=== PATIENT | male | born 1995 | race Caucasian/White ===

== ENCOUNTER 2019-04-27 07:58 | Day surgery (SDC) | payer BC ==
[2019-04-26 09:36] VITALS: BMI 23.6
[2019-04-27] MEDS ORDERED: Ketorolac Tromethamine 30 MG/ML VIAL ONE (08:46)
[2019-04-27 08:51] LABS: #Eosinphils 0.1 thou/uL (0.0-0.7); #Lymphocytes 1.7 thou/uL (1.20-3.40); #Monocytes 0.5 thou/uL (0.11-0.59); #Neutrophils 3.7 thou/uL (1.40-6.50); %Basophils 0.6 % (0.0-1.0); %Eosinophils 1.4 % (0.0-10.0); %Lymphocytes 27.7 % (21.0-51.0); %Neutrophils 62.2 % (42.0-75.0); Hemoglobin 16.8 g/dL (14.0-18.0); Mean Corpuscular HGB CONC 32.5 g/dL (32.0-36.0); Mean Corpuscular Hemoglobin 30.2 pg (27.0-31.0); Mean Corpuscular Volume 93.1 fL (78.0-98.0); Mean Platelet Volume 8.9 fL (7.4-10.4); Platelet Count 199 thou/uL (130-400); RBC Distribution Width 11.4 % (11.5-14.5); Red Blood Cell (RBC) Count 5.56 mill/uL (4.70-6.10)
[2019-04-27] MEDS ORDERED: Isosulfan Blue 50 MG/5 ML VIAL ONE (08:59)
[2019-04-27] MEDS ORDERED: Bacitracin Zinc Ointment 30 gm TUBE ONE (09:00)
[2019-04-27] MEDS ORDERED: Bupivacaine/Epinephrine 0.25% 30 ML VIAL ONE (09:00)
[2019-04-27 09:09] LABS: Anion Gap 12 mmol/L (10-20); BUN (Urea Nitrogen) 12 mg/dL (8.9-20.6); Calc. Creatinine Clearance 117 mL/min (70-130); Calcium 9.9 mg/dL (7.8-10.44); Carbon Dioxide 27 mmol/L (22-29); Chloride 104 mmol/L (98-107); Estimated GFR-MDRD 88; Glucose 91 mg/dL (70-105); Potassium 3.7 mmol/L (3.5-5.1); Sodium 139 mmol/L (136-145)
[2019-04-27] MEDS ORDERED: Midazolam HCl 2 mg/2 ml Vial ONE (09:48)
[2019-04-27] MEDS ORDERED: Fentanyl 100 MCG/2 ML VIAL ONE ×2 (09:48→11:32)
[2019-04-27] MEDS ORDERED: Dexamethasone 20 MG/5 ML VIAL ONE (13:08)
[2019-04-27] MEDS ORDERED: Rocuronium Bromide 10 MG/ML (10ML VIAL) ONE (13:08)
[2019-04-27] MEDS ORDERED: Glycopyrrolate 0.2 MG/ML 5 ML SYRINGE ONE (13:08)
[2019-04-27] MEDS ORDERED: PROPOFOL 200 MG/20 ML VIAL ONE (13:08)
[2019-04-27] MEDS ORDERED: Ondansetron PF 4 MG/2 ML Vial ONE (13:08)
--- NOTE | 2019-04-27 23:32 | OP ---
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 PROCEDURE PERFORMED: Pilonidal excision with complex layered closure. ANESTHESIA: General endotracheal. INDICATIONS: The patient is a 23-year-old white male. He presented with an ulcerated nodular lesion in the left perirectal area. This unfortunately is a pilonidal tract communicating with a single pilonidal pit overlying the coccyx. He was taken to the operating room at this time for excision of the of the involved tract. DESCRIPTION OF OPERATION: Informed consent was obtained. The patient was taken to the operating room, where general endotracheal anesthesia was obtained with the patient in supine position. He was rolled over into prone sandie-knife position. The operative site was shaved of hair, prepped with Betadine, and draped in sterile fashion. The buttocks were taped apart. I cannulated the draining opening in the left perirectal area. The tract extended superiorly toward the coccyx and the pilonidal pit. I cannulated this with an Angiocath and infiltrated a mixture of peroxide and isosulfan blue dye. After the involved tissue was blue-stained, I infiltrated local anesthetic using 0.25% Marcaine with epinephrine and created an elliptical incision involving both openings of the sinus tract. Dissection was carried through the skin and subcutaneous tissue and carried down around the underside of the tract. No attempt was made to dissect deeply but on a couple of occasions, blue-stained tissue was encountered and dissection was carried underneath this. On the medial aspect, the dissection unfortunately revealed the sphincter muscles. These were of course spared. The specimen was passed off the field. Meticulous hemostasis obtained with electrocautery. I raised a flap of cutaneous and fatty tissue from the left lateral aspect. I then closed the wound in layers using a series of interrupted sutures of 2-0 Vicryl. The skin edges were approximated with a series of interrupted sutures of 2-0 nylon placed in a vertical mattress fashion. Finally, I placed a running suture of 4-0 nylon across the skin edges. The incision was closed appropriately. Unfortunately, the inferior aspect was within about 2 to 2.5 cm of the anal verge. Antibiotic ointment and dry gauze dress were placed, as well as mesh pants. There were no complications. The patient tolerated the procedure well and was taken to recovery room in stable condition. Job ID: [id number]
== END 2019-04-27 13:20 | disposition home or self-care (01) ==
LOC: SDC 07:58
PROVIDERS: ATTEND Specialist
PROC: 0HX8XZZ Transfer Buttock Skin, External Approach (ICD-10-PCS; principal; 2019-04-27)
PROC: 0JB90ZZ Excision of Buttock Subcutaneous Tissue and Fascia, Open Approach (ICD-10-PCS; principal; 2019-04-27)
DX: L05.92 Pilonidal sinus without abscess (principal); J45.909 Unspecified asthma, uncomplicated
CPT/HCPCS: 80048; 85025; 88304; J0131; J0690; J1100; J1885; J2250; J2405; J2704; J3010; Q9968